=== PATIENT | female | born 1985 | race Caucasian/White ===

== ENCOUNTER 2018-08-08 20:27 | Inpatient (IN) ==
[2018-08-08] MEDS ORDERED: ACETAMINOPHEN 500 MG TABLET PO PRN (21:33)
[2018-08-08] MEDS ORDERED: INFLUENZA VIRUS VACCINE 0.5 ML SYRINGE IM ONE (21:55)
[2018-08-09] MEDS ORDERED: ceFAZolin 3,000 MG in SYRINGE 1 EACH IV ONE ×2 (00:39→08:00)
[2018-08-09] MEDS ORDERED: CITRIC ACID/SODIUM CITRATE 30 ML UDCUP PO ONE ×2 (00:39→08:00)
[2018-08-09] MEDS ORDERED: FAMOTIDINE 20 MG/2 ML VIAL IV ONE ×2 (00:39→08:00)
[2018-08-09] MEDS ORDERED: LACTATED RINGERS 1,000 ML IV SCH (01:00)
[2018-08-09 04:09] LABS: Basophils % 0.3 % (0.0-0.8); Eosinophils # 0.1 10*3/uL (0.0-0.87); Eosinophils % 1.4 % (0.00-10.9); Hematocrit 33.5 VOL% (35.7-47.0); Hemoglobin 10.7 GM/DL (12.0-16.0); Immature Granulocytes % 0.5 %; Immature Granulocytes Absolute 0.04 #; Lymphocytes # 1.5 10*3/uL (1.4-4.0); Lymphocytes % 19.4 % (21.3-54.2); Mean Corpuscular HGB Conc 31.9 GM/DL (32-36); Mean Corpuscular Hemoglobin 30 PG (27-34); Mean Corpuscular Volume 94.9 FL (87-102); Mean Platelet Volume 8.7 FL (9.6-12.0); Monocytes # 0.4 10*3/uL (0.11-0.8); Monocytes % 5.2 % (1.7-12.7); Neutrophils # 5.6 10*3/uL (1.4-7.4); Neutrophils % 73.2 % (38.7-73.9); Platelet Count 309 T/CUMM (130-400); Red Blood Count 3.53 MC/CUMM (3.8-5.5); Red Cell Distribution Width 13.5 % (9.3-17.3); White Blood Count 7.6 T/CUMM (4-12)
[2018-08-09 04:52] LABS: Alanine Aminotransferase < 9 U/L (13-56); Albumin 2.1 G/DL (3.4-5.0); Alkaline Phosphatase 129 U/L (45-117); Aspartate Amino Transferase 9 U/L (0-37); Bilirubin,Total < 0.39 MG/DL (0.2-1.0); Blood Urea Nitrogen 7 MG/DL (7-18); Glucose 93 MG/DL (74-106); Potassium 3.6 MMOL/L (3.5-5.1); Sodium 136 MMOL/L (136-145); Total Protein 6.2 G/DL (6.4-8.3)
[2018-08-09] MEDS ORDERED: OXYTOCIN 10 UNIT/ML VIAL IM ONE (07:46)
[2018-08-09] MEDS ORDERED: OXYTOCIN/LR 30 UNIT/1,000 ML BAG IV ONE (07:46)
[2018-08-09 07:59] LABS: HIV Antigen/Antibody Result Nonreactive (Nonreactive); Hepatitis B Surface Ag Quant < 0.10 Index; Hepatitis B Surface Ag Result Negative (Negative); Rubella Antibody IgG 66.8 IU/ML
[2018-08-09 08:34] LABS: Apearance,Urine CLEAR (Clear); Bacteria,Urine Occasional /HPF (Few); Bilirubin,Urine Negative (Negative); Blood, Urine Negative (Negative); Glucose,Urine (UA) Negative (Negative); Ketones,Urine Negative (Negative); Mucus,Urine Occasional /LPF (Occasional); Nitrite,Urine Negative (Negative); Protein,Urine Negative; RBC,Urine <1 /HPF (0-4); Squamous Epithelial Cell,Urine Occasional /HPF (0-10); Urine Color Yellow (Yellow); Urine Specific Gravity 1.012 (1.001-1.035); Urine Urobilinogen < 2.0 EU/DL (0.2-1.0); WBC,Urine <1 /HPF (0-6)
[2018-08-09] MEDS ORDERED: NALOXONE 0.4 MG/ML VIAL IV PRN (10:18)
[2018-08-09] MEDS ORDERED: HYDROmorphone PCA 30 MG/30 ML SYRINGE IV SCH (10:30)
[2018-08-09 10:37] LABS: Cord Arterial Blood HCO3 20.2 MMOL/L
[2018-08-09 10:38] LABS: Cord Venous Blood HCO3 25.6 MMOL/L; Cord Venous Blood PCO2 49.8 MMHG; Cord Venous Blood PO2 25.1 MMHG
[2018-08-09] MEDS ORDERED: PHENYLEPHRINE 1 MG/10 ML SYRINGE IV ONE (10:53)
[2018-08-09] MEDS ORDERED: MORPHINE 10 MG/10 ML VIAL ONE (10:53)
[2018-08-09] MEDS ORDERED: ONDANSETRON 4 MG/2 ML VIAL ONE (10:54)
[2018-08-09] MEDS ORDERED: BUPIVACAINE SPINAL 0.75% 2 ML AMP SPINAL ONE (10:54)
[2018-08-09 11:50] LABS: Barbiturates Screen,Urine Negative (Negative); Benzodiazepines Screen,Urine Negative (Negative); Cannabinoid Screen,Urine Negative (Negative); Opiate Screen,Urine Negative (Negative); Phencyclidine Screen,Urine Negative (Negative)
[2018-08-09] MEDS ORDERED: diphenhydrAMINE 50 MG/1 ML VIAL IV ONE (12:55)
[2018-08-09] MEDS ORDERED: OXYTOCIN/LR 20 UNIT/1,000 ML BAG IV ONE (13:30)
[2018-08-09] MEDS: ONDANSETRON 4 MG/2 ML VIAL IV PRN (14:37)
[2018-08-09] MEDS ORDERED: PROMETHAZINE 25 MG/1 ML VIAL IM PRN (16:18)
[2018-08-09] MEDS: ceFAZolin 1,000 MG in SYRINGE 1 EACH IV SCH (16:25)
[2018-08-09 18:57] LABS: Basophils % 0.1 % (0.0-0.8); Eosinophils % 0.5 % (0.00-10.9); Hematocrit 31.8 VOL% (35.7-47.0); Hemoglobin 10.3 GM/DL (12.0-16.0); Immature Granulocytes % 0.4 %; Immature Granulocytes Absolute 0.03 #; Lymphocytes % 12.4 % (21.3-54.2); Mean Corpuscular HGB Conc 32.4 GM/DL (32-36); Mean Corpuscular Hemoglobin 31 PG (27-34); Mean Corpuscular Volume 94.6 FL (87-102); Mean Platelet Volume 8.9 FL (9.6-12.0); Monocytes # 0.4 10*3/uL (0.11-0.8); Monocytes % 4.7 % (1.7-12.7); Neutrophils # 6.7 10*3/uL (1.4-7.4); Neutrophils % 81.9 % (38.7-73.9); Platelet Count 266 T/CUMM (130-400); Red Blood Count 3.36 MC/CUMM (3.8-5.5); Red Cell Distribution Width 13.2 % (9.3-17.3); White Blood Count 8.2 T/CUMM (4-12)
[2018-08-10] MEDS: ceFAZolin 1,000 MG in SYRINGE 1 EACH IV SCH (00:22)
[2018-08-10] MEDS ORDERED: oxyCODONE/ACETAMINOPHEN 5-325 MG TABLET PO PRN (04:48)
[2018-08-10] MEDS ORDERED: MEPERIDINE 25 MG/1 ML VIAL IV ONE (05:36)
[2018-08-10] MEDS ORDERED: SIMETHICONE CHEW 80 MG TABLET PO PRN (05:36)
[2018-08-10] MEDS: ONDANSETRON 4 MG/2 ML VIAL IV PRN (05:48)
[2018-08-10 06:44] LABS: Basophils % 0.3 % (0.0-0.8); Eosinophils # 0.1 10*3/uL (0.0-0.87); Eosinophils % 1.3 % (0.00-10.9); Hematocrit 31.8 VOL% (35.7-47.0); Hemoglobin 10.2 GM/DL (12.0-16.0); Immature Granulocytes % 0.6 %; Immature Granulocytes Absolute 0.04 #; Lymphocytes # 1.2 10*3/uL (1.4-4.0); Lymphocytes % 16.5 % (21.3-54.2); Mean Corpuscular HGB Conc 32.1 GM/DL (32-36); Mean Corpuscular Hemoglobin 30 PG (27-34); Mean Corpuscular Volume 94.6 FL (87-102); Mean Platelet Volume 8.9 FL (9.6-12.0); Monocytes # 0.5 10*3/uL (0.11-0.8); Monocytes % 6.6 % (1.7-12.7); Neutrophils # 5.2 10*3/uL (1.4-7.4); Neutrophils % 74.7 % (38.7-73.9); Platelet Count 276 T/CUMM (130-400); Red Blood Count 3.36 MC/CUMM (3.8-5.5); Red Cell Distribution Width 13.3 % (9.3-17.3)
[2018-08-10] MEDS ORDERED: METOCLOPRAMIDE 10 MG/2 ML VIAL IV SCH (08:00)
[2018-08-10] MEDS: oxyCODONE/ACETAMINOPHEN 5-325 MG TABLET PO PRN ×3 (08:19→20:00)
[2018-08-10] MEDS ORDERED: INFLUENZA VIRUS VACCINE 0.5 ML SYRINGE IM ONE (09:00)
[2018-08-10] MEDS ORDERED: METOCLOPRAMIDE 10 MG TABLET PO SCH (11:00)
[2018-08-10] MEDS: METOCLOPRAMIDE 10 MG TABLET PO SCH ×2 (12:03→19:55)
[2018-08-10] MEDS: MAGNESIUM HYDROXIDE SUSP 30 ML UDCUP PO SCH ×3 (16:36→20:59)
[2018-08-11] MEDS: oxyCODONE/ACETAMINOPHEN 5-325 MG TABLET PO PRN ×2 (04:34→10:03)
[2018-08-11] MEDS: METOCLOPRAMIDE 10 MG TABLET PO SCH ×2 (06:41→12:34)
[2018-08-11] MEDS: MAGNESIUM HYDROXIDE SUSP 30 ML UDCUP PO SCH (09:08)
[2018-08-11 12:00] VITALS: BP 127/69
[2018-08-11] MEDS ORDERED: DIPH/TET/ACEL PERT BOOSTER VACCINE 0.5 ML VIAL IM ONE (13:08)
== END 2018-08-11 14:30 | disposition home or self-care (01) | DRG 540 ==
LOC: N.LDOUT 20:27 → N.LD 20:28 → N.OB 08-09 14:21
PROVIDERS: ADMIT Obstetrics & Gynecology; ATTEND Obstetrics & Gynecology